=== PATIENT | female | born 1970 | race Caucasian/White ===

== ENCOUNTER 2019-12-04 09:19 | Emergency (ER) | payer MEDICAID, SELFPAY ==
[2019-12-04 09:35] VITALS: BP 170/101; PULSE 109; RESP 20; TEMP 36.6; O2SAT 96
--- NOTE | 2019-12-04 09:57 | ED.GENADULT ---
HPI - General Adult General Chief complaint: Upper Respiratory Infection Stated complaint: SOB Time Seen by Provider: 12/04/19 10:14 Source: patient and RN notes reviewed Mode of arrival: ambulatory Limitations: no limitations History of Present Illness HPI narrative: This patient has had a 5-day history of cough productive of yellow to light green phlegm without any chest pain but has had wheezing and been a little more short of breath. She does use Qvar as a maintenance medication uses Xopenex nebulizer treatments at home and has increased the frequency of those. She has had no noticeable fever. She has had a frontal headache and discomfort over the sinus areas. She has not had any nasal drainage or any postnasal drip sensation. She has not had any ear pain or drainage from the ears. She has had no chest pain. There is been no nausea, no vomiting, no diarrhea. She has had no hematuria, no dysuria, no pyuria. She has had no known exposure to anyone with influenza, bronchitis, pneumonia, strep throat, mono that she is aware of. She has not been traveling. Patient Lucas that she has needed to be on oral steroids and received shots of steroids in the past when she has had asthma flares, and requests this now. Related Data Home Medications Medication Instructions Recorded Confirmed Qvar 12/04/19 Vitamin D 12/04/19 fluticasone propionate [Flonase INTRANASAL 12/04/19 Allergy Relief] levalbuterol tartrate [Xopenex HFA] INHALATION 12/04/19 modafinil 200 mg PO BID 12/04/19 12/04/19 montelukast [Singulair] 10 mg PO DAILY 12/04/19 12/04/19 Allergies Allergy/AdvReac Type Severity Reaction Status Date / Time albuterol AdvReac Unknown Palpitation Verified 08/05/19 09:29 s Review of Systems Review of Systems: Narrative: CONSTITUTIONAL: Denies fever, chills, or sweats. Noncontributory except as pertains to the past medical history and history of present illness. EYES: Denies visual changes, redness, or discharge. ENT: Denies rhinorrhea, congestion, sore throat, or otalgia. CARDIOVASCULAR: Denies chest pain, palpitations, or edema. RESPIRATORY: Denies cough or dyspnea. GASTROINTESTINAL: Denies abdominal pain, nausea, vomiting, or diarrhea. GENITOURINARY: Denies dysuria or hematuria. SKIN: Denies rash or itching. MUSCULOSKELETAL: Denies back pain, joint pain, or myalgia. NEUROLOGIC: Denies headache, numbness, or weakness. PSYCHIATRIC: Denies anxiety or depression. [facility] Family History Family History (Updated 06/09/18 @ 10:05 by DOCTOR UNKNOWN) Other Family history of arthritis Family history of coronary artery disease Family history of malignant neoplasm Social History Social History Smoking status: Never smoker Alcohol intake: current Comments At time of signature, I have reviewed and agree with nursing past medical, surgical, social, and family history.Please see nursing chart for further information. There is no relevant family history pertinent to the presenting complaint. Exam Narrative: Exam Narrative: GENERAL: Well-appearing, well-nourished, and in no acute distress. HEAD: Normocephalic, atraumatic. EYES: PERRLA and EOMI. EARS: TM's clear bilaterally and the canals are clear. NOSE: Nares clear, no rhinorrhea or epistaxis. THROAT:Mucous membranes moist.Oropharynx Normal without erythema or exudates. NECK: Supple. No adenopathy of the neck, supraclavicular, axillary, or inguinal areas. RESPIRATORY: No respiratory distress. Airway patent. Respirations non-labored. The lungs have rhonchi in the upper but not in the mid or lower lung merino. She has fine expiratory wheezes of both lung merino at the bases which clear with deep breathing and coughing then recur. The temperature is 36.6 and pulse ox on room air is 96%. She is not cyanotic and not dyspneic. Pulse ox on room air initially was 96%. After discussion she was given a Xopenex nebulizer treatment which stopped the wheezing she felt m
[2019-12-04] MEDS: ALBUTEROL SULFATE NEB 2.5 MG/3 ML INH INHALATION (10:31)
[2019-12-04] MEDS: methylPREDNISolone ACETATE 40 MG/ML VIAL 80 MG IM (10:32)
--- NOTE | 2019-12-04 10:43 | PC.NURSE ---
1043 pt declined albuterol udt. cancelled by dr. Schmidt. Unable to indicate on MAR
[2019-12-04 10:47] VITALS: PULSE 101; RESP 20; O2SAT 96
[2019-12-04] MEDS: LEVALBUTEROL NEB 1.25 MG/3 ML INHALATION (10:47)
== END 2019-12-04 11:28 | disposition home or self-care (01) ==
PROVIDERS: Emergency Provider Family Medicine
DX: J40 Bronchitis, not specified as acute or chronic (principal); J45.21 Mild intermittent asthma with (acute) exacerbation; J44.9 Chronic obstructive pulmonary disease, unspecified
CPT/HCPCS: 94640; 99213; G0463; J1030

== ENCOUNTER 2021-06-24 18:59 | Emergency (ER) | payer BC, SELFPAY ==
--- NOTE | 2021-06-24 19:00 | ED.URI ---
HPI - URI/Sore Throat General Chief Complaint: Upper Respiratory Infection Stated Complaint: sore throat and congestion Time Seen by Provider: 06/24/21 19:14 Source: patient and RN notes reviewed Mode of arrival: ambulatory Limitations: no limitations History of Present Illness HPI Narrative: 51-year-old female with a history of asthma, narcolepsy, diabetes, sleep apnea, COPD, left ventricular hypertrophy presents with concern for sore throat, feeling of restriction in her throat. She reports fatigue, some nasal congestion and rhinorrhea. Reports symptoms started. Reports history of severe asthma, reports she used her nebulizer this morning, last had her MDI around 5:00 this evening. She reports history of similar symptoms with upper airway restriction in the past. She denies any known sick contacts. Reports she has been vaccinated for Covid. MD elicited complaint: sore throat Related Data Home Medications Medication Instructions Recorded Confirmed levalbuterol tartrate [Xopenex HFA] 45 mcg INHALATION Q6H 12/04/19 06/24/21 modafinil 200 mg PO BID 12/04/19 06/24/21 furosemide 40 mg PO DAILY 06/24/21 06/24/21 metformin 500 mg PO DAILY 06/24/21 06/24/21 methocarbamol 750 mg PO BID 06/24/21 06/24/21 oxygen-air delivery systems 06/24/21 06/24/21 spironolactone 25 mg PO DAILY 06/24/21 06/24/21 Allergies Allergy/AdvReac Type Severity Reaction Status Date / Time albuterol AdvReac Unknown Palpitation Verified 06/24/21 19:14 s Review of Systems Review of Systems: CONSTITUTIONAL: Reports malaise, fatigue. Denies chills, sweats, or fever. EYES: Denies visual changes, redness, or discharge. ENT: Reports rhinorrhea, congestion, sore throat. Denies sinus pain, otalgia CARDIOVASCULAR: Denies chest pain, palpitations, or edema. RESPIRATORY: Reports cough, wheezing, dyspnea. GASTROINTESTINAL: Denies abdominal pain, nausea, vomiting, diarrhea SKIN: Denies rash or itching. MUSCULOSKELETAL: Denies myalgia. NEUROLOGIC: Denies headache. All systems reviewed & are unremarkable except as noted in HPI and below PMFSH Family History Family History (Updated 06/09/18 @ 10:05 by DOCTOR UNKNOWN) Other Family history of arthritis Family history of coronary artery disease Family history of malignant neoplasm Social History Social History Smoking status: Never smoker Alcohol intake: current Comments At time of signature, agree with nursing past medical, surgical, social and family history. There is no relevant family history pertinent to the presenting complaint Exam Narrative: GENERAL: Well-appearing, well-nourished, and in no acute distress. HEAD: Normocephalic EYES: PERRLA, conjunctivae clear ENT: Nares clear, clear discharge. Mucous membranes moist. TM pearly alves with dull light reflex bilaterally; no tragal tenderness. Oropharynx not erythematous without lesions. Tonsils not enlarged and without exudate, no drooling, no hoarseness, no trismus, uvula midline, no visible abscesses. NECK: Supple. No lymphadenopathy CHEST: Clear to auscultation, breath sounds equal. No lower airway wheezing, rhonchi, rales stridor. No respiratory distress, speaks in full sentences. Audible upper airway wheezing noted HEART: Regular rate and rhythm. No murmur heard. SKIN: Warm, dry, no rash. NEURO: Alert and oriented x3. PSYCH: Normal mood and affect Course Course Emergency Course: Patient is aware of diagnosis, understands and agrees to treatment plan. Anticipatory guidance given. Patient agrees to follow-up as directed and is aware of reasons to seek care at the emergency department. Portions of this record may have been created with voice recognition software Reevaluation(s) Reevaluation #1: Solu-Medrol given at 1928. Only mild improvement noted to upper airway wheezing, patient instructed to continue to monitor symptoms and if they worsen or do not improve to go the emergency room. Patient also notified to monitor blood sugar
[2021-06-24 19:04] VITALS: BP 145/82; PULSE 96; RESP 14; TEMP 37.3; O2SAT 98
[2021-06-24 19:21] VITALS: BP 145/82; PULSE 96; RESP 14; TEMP 37.3; O2SAT 98
[2021-06-24] MEDS: methylPREDNISolone SOD SUCC 125 MG VIAL IM (19:28)
== END 2021-06-24 19:48 | disposition home or self-care (01) ==
PROVIDERS: Emergency Provider Nurse Practitioner
DX: J45.41 Moderate persistent asthma with (acute) exacerbation (principal); G47.419 Narcolepsy without cataplexy; E11.9 Type 2 diabetes mellitus without complications; G47.30 Sleep apnea, unspecified; J44.9 Chronic obstructive pulmonary disease, unspecified
CPT/HCPCS: 87081; 87880; 96372; 99213; G0463; J2930

== ENCOUNTER 2021-11-06 08:44 | Emergency (ER) | payer BC, SELFPAY ==
--- NOTE | ~2021-11-06 | XR_ITS ---
EXAMINATION: XR chest 2V DATE: 11/06/2021 09:37 INDICATION: Cough. TECHNIQUE: Frontal and lateral views of the chest were obtained. COMPARISON: None. FINDINGS: There is mild atelectasis in left lower lung zone. There is mild scarring at right lung ape x. No pleural effusion or pneumothorax. The heart size is normal. IMPRESSION: 1. Mild atelectasis in left lower lung zone and mild scarring at right lung apex. Reviewed, dictated and finalized at location B. [employer] IMPRESSION: 1. Mild atelectasis in left lower lung zone and mild scarring at right lung ape x.
[2021-11-06 08:59] VITALS: BP 128/72; PULSE 88; RESP 16; TEMP 37.2; O2SAT 95
--- NOTE | 2021-11-06 09:19 | ED.URI ---
HPI - URI/Sore Throat General Chief Complaint: Upper Respiratory Infection Stated Complaint: Sore throat, congestion Time Seen by Provider: 11/06/21 09:10 Source: patient, family () and RN notes reviewed Mode of arrival: ambulatory Limitations: no limitations History of Present Illness HPI Narrative: 51-year-old female presents to the [facility] with cough, congestion and sore throat that started last night. Patient states that she has a history of asthma. Last nebulizer treatment was yesterday. 2 days ago had stents in her iliac vein placed surgically. Denies being intubated at that time. Patient states that she is just wanting to be seen for her congestion and sore throat, states that her bronchitis/asthma gets very bad very quickly. MD elicited complaint: cough and sore throat Related Data Home Medications Medication Instructions Recorded Confirmed levalbuterol tartrate [Xopenex HFA] 45 mcg INHALATION Q6H 12/04/19 11/06/21 modafinil 200 mg PO BID 12/04/19 11/06/21 metformin 500 mg PO DAILY 06/24/21 11/06/21 methocarbamol 750 mg PO BID 06/24/21 11/06/21 oxygen-air delivery systems 06/24/21 06/24/21 clopidogrel 75 mg PO DAILY 11/06/21 11/06/21 Allergies Allergy/AdvReac Type Severity Reaction Status Date / Time albuterol AdvReac Unknown Palpitation Verified 06/24/21 19:14 s Review of Systems Review of Systems: All systems reviewed & are unremarkable except as noted in HPI and below Constitutional: Constitutional: Reports no additional constitutional complaints, Denies chills and Denies fever(s) Eyes: Eyes: Reports no additional eye complaints ENT: Reports as per HPI and Reports sore throat Cardiovascular: Cardiovascular: Denies chest pain Respiratory: Respiratory: Reports as per HPI, Reports cough, Denies dyspnea and Denies wheezing Gastrointestinal: Gastrointestinal: Reports no additional gastrointestinal complaints, Denies abdominal pain, Denies nausea and Denies vomiting Musculoskeletal: Musculoskeletal: Reports as per HPI and Reports back pain (Is not wanting to be seen for her lower back pain.) Integumentary/Breasts: Skin/Breast: Reports system reviewed and no additional complaints, except as docu Neurologic: Reports system reviewed and no additional complaints, except as documented Psychiatric: Psychiatric: Reports no additional psychiatric complaints Allergic/Immunologic: Allergic/Immunologic: Reports no additional allergic/immunologic complaints [facility] Past Medical History Medical History Asthma Pre-diabetes Surgical History Surgical History S/P insertion of iliac artery stent Family History Family History Other Family history of arthritis Family history of coronary artery disease Family history of malignant neoplasm Social History Social History Smoking status: Never smoker Alcohol intake: current Comments At the time of my signature, I reviewed and agree with the nursing past medical, surgical, social, and family history. There is no relevant family history pertinent to the patient complaint. Exam Const: General: alert and ill appearing chronically Nutritional Appearance: well nourished and obese morbidly obese Orientation/consciousness: patient oriented x3 Limitations: no limitations HENMT: Head: normal to inspection Ears: external ears normal, TM's normal bilaterally and EAC's normal General nose exam: Normal external nose present Face and sinus: normal facial exam Throat: uvula midline, posterior oropharynx abnormal cobblestoning and erythema; no edema and no exudates, postnasal drainage and no uvular edema Eyes: Conjunctivae: conjunctivae normal Pupils: Equal, round and reactive pupils present Neck: Neck: normal visual inspection, no lymphadenopathy and no
--- NOTE | 2021-11-06 19:27 | PC.NURSE ---
PT TAKEN TO RADIOLOGY IN WHEELCHAIR
== END 2021-11-06 10:09 | disposition home or self-care (01) ==
PROVIDERS: Emergency Provider Nurse Practitioner
DX: J45.901 Unspecified asthma with (acute) exacerbation (principal); J98.11 Atelectasis; R73.03 Prediabetes
CPT/HCPCS: 71046; 87081; 87880; 99213; G0463

== ENCOUNTER 2022-01-17 17:42 | Emergency (ER) | payer BC, SELFPAY ==
[2022-01-17 17:47] VITALS: BP 155/89; PULSE 98; RESP 16; TEMP 37; O2SAT 98
--- NOTE | 2022-01-17 18:00 | ED.GENADULT ---
HPI - General Adult General Chief complaint: Shortness of Breath/Dyspnea Stated complaint: Shortness of Breath Time Seen by Provider: 01/17/22 18:02 Source: patient and RN notes reviewed Mode of arrival: ambulatory Limitations: no limitations History of Present Illness HPI narrative: 52-year-old female with history of asthma presented for complaint of sinus pressure, postnasal drainage and cough worsening over the past 5 days. She states the postnasal drainage causes exacerbations of asthma. She endorses audible wheezing and hoarse voice, shortness of breath at times. She uses Xopenex nebulizer at home. Denies chest pain, nausea, vomiting, diarrhea, fever or chills. Related Data Home Medications Medication Instructions Recorded Confirmed levalbuterol tartrate [Xopenex HFA] 45 mcg INHALATION Q6H 12/04/19 01/17/22 modafinil 200 mg PO BID 12/04/19 01/17/22 metformin 500 mg PO DAILY 06/24/21 01/17/22 methocarbamol 750 mg PO BID 06/24/21 01/17/22 oxygen-air delivery systems 06/24/21 06/24/21 clopidogrel 75 mg PO DAILY 11/06/21 01/17/22 acetaminophen-codeine 1 tablet PO Q6H PRN 01/17/22 01/17/22 [Aceta-Codeine] furosemide 40 mg PO DAILY 01/17/22 01/17/22 modafinil 200 mg PO QAM 01/17/22 01/17/22 spironolactone 25 mg PO DAILY 01/17/22 01/17/22 Allergies Allergy/AdvReac Type Severity Reaction Status Date / Time albuterol AdvReac Unknown Palpitation Verified 01/17/22 18:02 s Review of Systems Review of Systems: CONSTITUTIONAL: Denies malaise, chills, sweats, fever EYES: Denies visual changes, redness, or discharge ENT: Reports rhinorrhea, congestion, sinus pain CARDIOVASCULAR: Denies chest pain, palpitations, edema RESPIRATORY: Reports cough, post nasal drainage.,dyspnea GASTROINTESTINAL: Denies abdominal pain, nausea, vomiting, diarrhea SKIN: Denies rash or itching MUSCULOSKELETAL: Denies Myalgia NEUROLOGIC: Denies headache PMFSH Past Medical History Medical History Asthma Pre-diabetes Surgical History Surgical History S/P insertion of iliac artery stent Family History Family History Other Family history of arthritis Family history of coronary artery disease Family history of malignant neoplasm Social History Social History Smoking status: Never smoker Alcohol intake: current Exam Narrative: GENERAL: Ill-appearing, nontoxic HEAD: Normocephalic EYES: conjunctivae clear ENT: Mucous membranes moist. TM pearly alves with dull light reflex bilaterally; no tragal tenderness.Oropharynx erythematous without lesions or exudate, no drooling, no hoarseness, no trismus, uvula midline. NECK: Supple. No lymphadenopathy CHEST: Labored at rest, audible wheezing, anterior wheezing, diminished throughout No respiratory distress, speaks in full sentences. HEART: Regular rate and rhythm. No murmur heard. SKIN: Warm, dry, no rash. NEURO: Alert and oriented x3. PSYCH: Normal mood and affect Course Course Emergency Course: Patient is aware of diagnosis, understands and agrees to treatment plan. Anticipatory guidance given. Patient agrees to follow-up as directed and is aware of reasons to seek care at the emergency department. Portions of this record may have been created with voice recognition software Level of Care: Express Care Visit Vital Signs Vital signs: Vital Signs Temperature 98.6 F 01/17/22 17:47 Pulse Rate 98 01/17/22 17:47 Respiratory Rate 16 01/17/22 17:47 Blood Pressure 155/89 H 01/17/22 17:47 Pulse Oximetry 98 01/17/22 17:47 Temperature 98.6 F 01/17/22 17:47 Pulse Rate 98 01/17/22 17:47 Respiratory Rate 16 01/17/22 17:47 Blood Pressure 155/89 H 01/17/22 17:47 Pulse Oximetry 98 01/17/22 17:47 reviewed Medical Decision Making MDM N
== END 2022-01-17 18:15 | disposition home or self-care (01) ==
PROVIDERS: Emergency Provider Nurse Practitioner Family
DX: J06.9 Acute upper respiratory infection, unspecified (principal); J45.909 Unspecified asthma, uncomplicated; R73.03 Prediabetes; Z79.84 Long term (current) use of oral hypoglycemic drugs
CPT/HCPCS: 99211; G0463

== ENCOUNTER 2022-05-19 17:47 | Emergency (ER) | payer BC, SELFPAY ==
--- NOTE | ~2022-05-19 | XR_ITS ---
EXAMINATION: XR chest 2V Exam Date/Time: 05/19/2022 18:25 CDT HISTORY: SOB,WHEEZING Comparison: 11/06/2021. RESULT: Lines, tubes, and devices: None. Lungs and pleura: Clear. Cardiomediastinal silhouette: Stable. Other: No acute osseous or upper abdominal finding. IMPRESSION: No acute cardiopulmonary process. Reviewed, dictated and finalized at location K.
[2022-05-19 17:57] VITALS: BP 168/93; PULSE 105; RESP 20; TEMP 37.1; O2SAT 97
--- NOTE | 2022-05-19 18:40 | ED.URI ---
HPI - URI/Sore Throat General Chief Complaint: Upper Respiratory Infection Stated Complaint: Chest Congestion/Cough Time Seen by Provider: 05/19/22 18:41 Source: patient Mode of arrival: ambulatory Limitations: no limitations History of Present Illness HPI Narrative: 52 yo F presents with c/o continued wheezing, cough, SOB with exertion. Was recently admitted to hospital. States she received very poor treatment. Was not given solumedrol, high dose prednisone like usual. Also states that hospital did not acknownledge her albuterol allergy and gave her duoneb and not xopenex. Finished 20mg daily prednisone over 5 days and feels she is going backwards and might end back in hospital. States she normally starts at 60mg and ends with 40mg over a week. Her PCP is in [place] and hasn't been able to follow up. States her covid test at hospital was negative but now coughing again and has generalized weakness and concerned she got covid from the hospital. all systems reviewed and negative except as noted above. Related Data Home Medications Medication Instructions Recorded Confirmed levalbuterol tartrate 45 45 mcg inhalation Q6H 12/04/19 05/19/22 mcg/actuation aerosol inhaler (Xopenex HFA) modafinil 200 mg tablet 200 mg PO BID 12/04/19 05/19/22 metformin 500 mg tablet 500 mg PO DAILY 06/24/21 05/19/22 methocarbamol 750 mg tablet 750 mg PO BID 06/24/21 05/19/22 oxygen-air delivery systems 06/24/21 05/19/22 clopidogrel 75 mg tablet 75 mg PO DAILY 11/06/21 05/19/22 acetaminophen 300 mg-codeine 30 mg 1 tablet PO Q6H PRN Back Pain 01/17/22 05/19/22 tablet furosemide 40 mg tablet 40 mg PO DAILY 01/17/22 05/19/22 spironolactone 25 mg tablet 25 mg PO DAILY 01/17/22 05/19/22 cyanocobalamin (vitamin B-12) 1,000 mcg DAILY 05/19/22 05/19/22 1,000 mcg tablet rosuvastatin 10 mg tablet 10 mg PO DAILY 05/19/22 05/19/22 Allergies Allergy/AdvReac Type Severity Reaction Status Date / Time albuterol AdvReac Unknown Palpitation Verified 05/19/22 18:07 s Review of Systems Review of Systems: CONSTITUTIONAL: Denies fever, chills, or sweats. Reports fatigue, generalized weakness. EYES: Denies visual changes, redness, or discharge. ENT: Denies rhinorrhea, congestion, sore throat, or otalgia. CARDIOVASCULAR: Denies chest pain, palpitations, or edema. RESPIRATORY: Reports cough, wheezing and dyspnea on exertion. GASTROINTESTINAL: Denies abdominal pain, nausea, vomiting, or diarrhea. GENITOURINARY: Denies dysuria or hematuria. SKIN: Denies rash or itching. MUSCULOSKELETAL: Denies back pain, joint pain, or myalgia. NEUROLOGIC: Denies headache, numbness, or weakness. PSYCHIATRIC: Denies anxiety or depression. All other systems reviewed are negative, except as documented in HPI. [facility] Past Medical History Medical History Asthma Pre-diabetes Surgical History Surgical History S/P insertion of iliac artery stent Family History Family History Other Family history of arthritis Family history of coronary artery disease Family history of malignant neoplasm Social History Social History Smoking status: Never smoker Alcohol intake: current Comments At time of signature, agree with nursing past medical, surgical, social and family history. There is no relevant family history pertinent to the presenting complaint. Exam Narrative: GENERAL: This is a well-nourished, well-developed patient, in no apparent distress. HEAD: normocephalic, atraumatic. EYES: PERRL. Sclera clear/white. Vision is grossly intact. EARS: External ears normal, auditory canals clear and without drainage, TMs normal without perforation. Hearing grossly intact. NOSE: External nose normal with no obvious nasal discharge, nares without redness, no rhinorrhea
[2022-05-19] MEDS: methylPREDNISolone SOD SUCC 125 MG VIAL IM (19:01)
== END 2022-05-19 19:35 | disposition home or self-care (01) ==
PROVIDERS: Emergency Provider Nurse Practitioner Family
DX: J45.901 Unspecified asthma with (acute) exacerbation (principal); Z20.822 Contact with and (suspected) exposure to COVID-19; R73.03 Prediabetes
CPT/HCPCS: 71046; 87426; 96372; 99213; C9803; G0463; J2930

== ENCOUNTER 2023-01-25 10:03 | Outpatient (CLI) | payer OTHER, SELFPAY ==
--- NOTE | 2023-01-25 12:37 | WPDSIXMINUTE ---
Six Minute Walk Procedure Procedure Performed Pulmonary Stress Test (6 min walk) Six Minute Walk Six Minute Walk: This is a 6 minute walk test. The test was performed and interpreted in accordance with the 2014 ERS/ATS task force guidelines. Patient used a wheeled walker and wears personal home O2 at 3 L pulse dose with activity and 2 L at rest. The test was performed with 3 L pulse dose oxygen. Patient had 1 stop for 15 seconds. Findings: The patient's resting 3 L NC oxygen saturation measured by pulse oximetry was 88% and heart rate was 111 bpm. Patient ambulated for 76 meters and oxygen saturation remained 85 to 94%. Heart rate at the end of the study was 120 bpm. The patient had hypoxemia at rest and with ambulation. Formal home O2 assessment should be performed to determine patient's oxygen needs. There are no prior studies for comparison.
== END 2023-01-25 10:04 | disposition home or self-care (01) ==
LOC: ANHPFT 10:04
PROVIDERS: PCP Family Medicine; Visit Provider Family Medicine
DX: J45.909 Unspecified asthma, uncomplicated (principal); I27.20 Pulmonary hypertension, unspecified
CPT/HCPCS: 94618

== ENCOUNTER 2023-04-30 08:46 | Emergency (ER) | payer OTHER, SELFPAY ==
--- NOTE | ~2023-04-30 | XR_ITS ---
EXAMINATION: XR chest 2V DATE: 04/30/2023 09:34 INDICATION: Shortness of breath. Cough. TECHNIQUE: Frontal and lateral views of the chest were obtained. COMPARISON: Chest 2 views 05/19/2022 FINDINGS: There is no pneumonia, pleural effusion, or pneumothorax. The heart size is normal. IMPRESSION: 1. No acute cardiopulmonary disease. Reviewed, dictated and finalized at location A.
[2023-04-30 08:50] VITALS: BP 151/86; PULSE 97; RESP 22; TEMP 36.7; O2SAT 98
--- NOTE | 2023-04-30 09:32 | ED.GENADULT ---
HPI - General Adult General Chief complaint: Upper Respiratory Infection Stated complaint: Shortness of Breath Source: patient Mode of arrival: ambulatory Limitations: no limitations History of Present Illness HPI narrative: Patient presents for evaluation of respiratory symptoms for last 3 days. She reports coughing spells and SOB. She also reports mucopurulent discharge from nares. She has an underlying hx of COPD and CHF. She wears O2 at 2 L NC at home. She has chronic BLE swelling 2/2 lymphedema. She takes 20mg of lasix at home daily. She has neb treatments available which provide some relief. She is a former smoker. She does not have a tape calender at the present time. She has had similar symptoms in the past which have responded well to abx and steroids. Her was recently ill with respiratory symptoms. Related Data Home Medications Medication Instructions Recorded Confirmed methocarbamol 750 mg tablet 750 mg PO BID 06/24/21 04/30/23 oxygen-air delivery systems 06/24/21 04/30/23 furosemide 40 mg tablet 40 mg PO DAILY 01/17/22 04/30/23 cyanocobalamin (vitamin B-12) 1,000 mcg DAILY 05/19/22 04/30/23 1,000 mcg tablet diclofenac sodium 1 % topical gel 1 ea topical DAILY 04/30/23 04/30/23 (Arthritis Pain (diclofenac)) empagliflozin 10 mg tablet 10 mg PO DAILY 04/30/23 04/30/23 (Jardiance) ergocalciferol (vitamin D2) 1,250 1,250 mcg PO WEEKLY 04/30/23 04/30/23 mcg (50,000 unit) capsule fluticasone propionate 50 1 spray intranasal DAILY 04/30/23 04/30/23 mcg/actuation nasal spray,suspension levalbuterol HCl 1.25 mg/3 mL 1.25 mg inhalation Q8H PRN 04/30/23 04/30/23 solution for nebulization Shortness Of Breath Or Wheezing tiotropium bromide 2.5 2.5 mcg inhalation QHS 04/30/23 04/30/23 mcg/actuation mist for inhalation (Spiriva Respimat) Allergies Allergy/AdvReac Type Severity Reaction Status Date / Time albuterol AdvReac Unknown Palpitation Verified 04/30/23 09:08 s Review of Systems Review of Systems: CONSTITUTIONAL: Denies fever, chills, or sweats. EYES: Denies visual changes, redness, or discharge. ENT: Denies rhinorrhea, congestion, sore throat, or otalgia. CARDIOVASCULAR: Denies chest pain or palpitations RESPIRATORY: Reports cough with SOB GASTROINTESTINAL: Denies abdominal pain, nausea, vomiting, or diarrhea. GENITOURINARY: Denies dysuria or hematuria. SKIN: Denies rash or itching. MUSCULOSKELETAL: Reports chronic BLE edema. Denies back pain, joint pain, or myalgia. NEUROLOGIC: Denies headache, numbness, dizziness, or weakness. PSYCHIATRIC: Denies anxiety or depression. [facility] Past Medical History Medical History Asthma CHF (congestive heart failure) COPD (chronic obstructive pulmonary disease) Hyperlipidemia Hypertension Pre-diabetes Surgical History Surgical History S/P insertion of iliac artery stent Family History Family History Other Family history of arthritis Family history of coronary artery disease Family history of malignant neoplasm Social History Social History Smoking packs per day: 1 Smoking cigarettes per day: 20.0 Years smoked: 20 Smoking pack-years: 20.00 Smoking status: Former smoker Tobacco type: cigarettes Alcohol intake: current Exam Narrative: GENERAL: Well-appearing, well-nourished, and in no acute distress. HEAD: Normocephalic, atraumatic. EYES: PERRLA and EOMI. ENT: Nares clear, no rhinorrhea or epistaxis. Mucous membranes moist. Oropharynx without tonsillar hypertrophy exudate or other lesions. Bilateral TMs pearly alves nonbulging NECK: Supple. No adenopathy or masses. No carotid bruits or JVD CHEST: Wheezing and rales noted bilaterally. Cough present on exa
== END 2023-04-30 09:55 | disposition home or self-care (01) ==
PROVIDERS: Emergency Provider Nurse Practitioner; PCP Family Medicine
DX: J44.1 Chronic obstructive pulmonary disease with (acute) exacerbation (principal); J32.9 Chronic sinusitis, unspecified; I11.0 Hypertensive heart disease with heart failure; I50.9 Heart failure, unspecified; E78.5 Hyperlipidemia, unspecified; I10 Essential (primary) hypertension; R73.03 Prediabetes; Z87.891 Personal history of nicotine dependence
CPT/HCPCS: 71046; 99213; G0463

== ENCOUNTER 2023-05-03 09:30 | Outpatient (RCR) | payer OTHER, SELFPAY | END 2023-05-03 23:59 | disposition home or self-care (01) | LOC: ANHCPREHAB 09:30 | PROVIDERS: PCP Family Medicine; Visit Provider Family Medicine | DX: I27.20 Pulmonary hypertension, unspecified (principal); J44.9 Chronic obstructive pulmonary disease, unspecified | CPT/HCPCS: 94625 ==

== ENCOUNTER 2023-08-23 10:00 | Outpatient (RCR) | payer OTHER, SELFPAY | END 2023-08-30 16:01 | disposition home or self-care (01) | LOC: ANHCPREHAB 10:00 | PROVIDERS: PCP Family Medicine; Visit Provider Family Medicine | DX: I27.20 Pulmonary hypertension, unspecified (principal); J44.9 Chronic obstructive pulmonary disease, unspecified | CPT/HCPCS: 94625 ==

== ENCOUNTER 2023-09-05 09:45 | Outpatient (RCR) | payer OTHER, SELFPAY ==
--- NOTE | 2023-08-09 12:06 | OPREHPOC ---
Outpatient Therapy Plan of Care This is a Multidisciplinary Plan of Care that may contain components documented by all disciplines (PT, OT, and ST.) PT Problem 1 PT Problem #1 Knowledge Deficit PT Goal 1 Goal 1* indep with HEP for leg strengthening 2* education for lymphedema care--skin care, garments, manual lymph drainage PT Problem 2 PT Problem #2 Pain PT Goal 1 Goal 1* decrease pain in legs to 4/10 at worst PT Problem 3 PT Problem #3 Impaired Flexibility PT Goal 1 Goal decrease swelling to increase knee flexion, to improve sit/stand transfer sitting knee flexion 1* R 95' 2* L 90' PT Problem 4 PT Problem #4 Impaired Lymphatic System PT Goal 1 Goal circumferential measurement of leg, to 52 cm from bottom of foot 1* R 580 cm 2* L 580 cm no redness over lower leg 3* R 4* L no fibrotic tissue with palpation over lower leg 5* R 6* L 7* pt obtain compression garments for lower legs, with good fit and comfort
--- NOTE | 2023-08-09 12:06 | PTOPEVAL1 ---
Assessment and note entered by Harper Baker, PT Evaluation Information Assessment Status Evaluation Diagnosis bilateral LE lymphedema Onset chronic issues Subjective Information chronic history of swelling in legs ~ 5 years; no treatment for swelling of legs, except vascular surgeon obtained home leg pumps for her; currently in pulmonary-cardiac rehab; following with epic manager, vascular, pulmonary and general dr; ACTIVITY: use oxygen; sit in recliner with legs elevated, sleeps in recliner; live at home with ; do not use cane or walker; requires assist with shoes, does not wear socks due to feet hurt; assist with dressing and bathing; skin is sensative and cannot tolerate heavy blanket with sleeping- only light sheet; Reported Pain Level Pain Score Self Report Additional Pain Score Comments pain range in the past week: 3-9/10; tender, sensitive skin, tight all time; leg pain also have back pain Assessment PT Clinical Summary Chhaya has the diagnosis of lymphedema in both legs. She has chronic issues with her legs. Her medical history is complex--cardiac, vascular, pulmonary and respiratory issues, with L iliac vein surgery/stent, diabetes, CHF. She has decreased mobility due to respiratory and cardiac issues, and large size of her legs. With the evaluation, she has skin changes and fibrotic tissue with slight redness over both legs with dorsum of foot edema; she also has tenderness and sensitivity of skin. She does have a home compression pump that she has been using daily, and has not had any lymphedema treatments. Decreased knee flexion ROM bilateral, due to lymphedema. Skilled PT services are indicated for multilayer compression wraps, manual lymph drainage, education for lymphedema care and compression garment for her to obtain once reduction is achieved. Will need to monitor her cardiac and pulmonary s/s for any changes with the lymph treatment. Plan of Care Interventions
--- NOTE | 2023-08-31 11:02 | PCPTNOTE ---
pt was 15 minutes late to appt today, due to having another appt prior to coming here. She apologized.
--- NOTE | 2023-09-07 10:15 | PCPTNOTE ---
pt called and canceled due to no transportation and son being tested for COVID.
--- NOTE | 2023-09-09 14:26 | PCPTNOTE ---
pt called and canceled today's appt;
--- NOTE | 2023-09-12 10:18 | PTOPDC ---
Assessment and note entered by Harper Baker, PT Discharge Information Assessment PT Clinical Summary Chhaya has received 5 PT sessions. She called and stated she needs to cancel the remaining appointments--it is too hard and too much for her to get in here for therapy. She has problems with walking from parking lot into building. Discussed with her on the phone, continue to use her home compression pump, doing her self lymph massage and leg exercises as she is able to perform. Education was completed but she was not measured for compression garments for her legs. She was hesitant about getting garments, due to having to have her family assist with putting them on, because she cannot reach to her feet and ankles. The goals were not addressed. Discharge PT per pt request. Plan of Care PT Services Indicated No
== END 2023-09-12 11:32 | disposition home or self-care (01) ==
LOC: ANHPT 09:45
PROVIDERS: PCP Family Medicine; Visit Provider Family Medicine
DX: R60.0 Localized edema (principal)
CPT/HCPCS: 29581; 97110; 97140; 97162

== ENCOUNTER 2024-06-26 15:31 | Emergency (ER) | payer OTHER, SELFPAY ==
[2024-06-26 15:34] VITALS: BP 133/67; PULSE 87; RESP 20; TEMP 37; O2SAT 98
--- NOTE | 2024-06-26 16:08 | ED.GENADULT ---
HPI - General Adult General Chief complaint: Upper Respiratory Infection Stated complaint: sore throat Time Seen by Provider: 06/26/24 16:08 Source: patient, RN notes reviewed and old records reviewed Mode of arrival: ambulatory Limitations: no limitations History of Present Illness HPI narrative: 54-year-old female presents to the [facility] with a sore throat that started maybe yesterday. No treatment prior arrival. States that she just wants to get checked because both for kids are sick 1 is positive for strep. Related Data Home Medications Medication Instructions Recorded Confirmed methocarbamol 750 mg tablet 750 mg PO BID 06/24/21 06/26/24 oxygen-air delivery systems 06/24/21 06/26/24 furosemide 40 mg tablet 40 mg PO DAILY 01/17/22 06/26/24 cyanocobalamin (vitamin B-12) 1,000 mcg DAILY 05/19/22 06/26/24 1,000 mcg tablet diclofenac sodium 1 % topical gel 1 ea topical DAILY 04/30/23 06/26/24 (Arthritis Pain (diclofenac)) empagliflozin 10 mg tablet 10 mg PO DAILY 04/30/23 06/26/24 (Jardiance) ergocalciferol (vitamin D2) 1,250 1,250 mcg PO WEEKLY 04/30/23 06/26/24 mcg (50,000 unit) capsule fluticasone propionate 50 1 spray intranasal DAILY 04/30/23 06/26/24 mcg/actuation nasal spray,suspension levalbuterol HCl 1.25 mg/3 mL 1.25 mg inhalation Q8H PRN 04/30/23 06/26/24 solution for nebulization Shortness Of Breath Or Wheezing tiotropium bromide 2.5 2.5 mcg inhalation QHS 04/30/23 06/26/24 mcg/actuation mist for inhalation (Spiriva Respimat) Allergies Allergy/AdvReac Type Severity Reaction Status Date / Time albuterol AdvReac Unknown Palpitation Verified 06/26/24 15:58 s Review of Systems Review of Systems: All systems reviewed & are unremarkable except as noted in HPI and below Constitutional: Constitutional: Reports no additional constitutional complaints Eyes: Eyes: Reports no additional eye complaints ENT: Reports as per HPI and Reports sore throat Cardiovascular: Cardiovascular: Reports no additional cardiovascular complaints, Denies chest pain and Denies dyspnea Respiratory: Respiratory: Reports no additional respiratory complaints, Denies chest congestion, Denies cough and Denies dyspnea Gastrointestinal: Gastrointestinal: Reports no additional gastrointestinal complaints, Denies abdominal pain, Denies nausea and Denies vomiting Musculoskeletal: Musculoskeletal: Reports no additional musculoskeletal complaints Integumentary/Breasts: Skin/Breast: Reports system reviewed and no additional complaints, except as docu Neurologic: Reports system reviewed and no additional complaints, except as documented Psychiatric: Psychiatric: Reports no additional psychiatric complaints Allergic/Immunologic: Allergic/Immunologic: Reports no additional allergic/immunologic complaints [facility] Past Medical History Medical History Asthma CHF (congestive heart failure) COPD (chronic obstructive pulmonary disease) Hyperlipidemia Hypertension Pre-diabetes Surgical History Surgical History S/P insertion of iliac artery stent Family History Family History Other Family history of arthritis Family history of coronary artery disease Family history of malignant neoplasm Social History Social History Smoking packs per day: 1 Smoking cigarettes per day: 20.0 Years smoked: 20 Smoking pack-years: 20.00 Smoking status: Former smoker Tobacco type: cigarettes Alcohol intake: current Comments At the time of my signature, I reviewed and agree with the nursing past medical, surgical, social, and family history. There is no relevant family history pertinent to the patient complaint. Exam Const: General: cooperative, healthy appearing, comfortable, no acute dist
[2024-06-26 16:22] LABS: EDSTREPNEGPOS1 Negative
== END 2024-06-26 16:18 | disposition home or self-care (01) ==
PROVIDERS: Emergency Provider Nurse Practitioner; PCP Family Medicine
DX: J06.9 Acute upper respiratory infection, unspecified (principal); J02.9 Acute pharyngitis, unspecified; Z87.891 Personal history of nicotine dependence; J44.9 Chronic obstructive pulmonary disease, unspecified; I11.0 Hypertensive heart disease with heart failure; I50.9 Heart failure, unspecified; R73.03 Prediabetes
CPT/HCPCS: 87081; 87880; 99213; G0463